=== PATIENT | male | born 1980 | race Caucasian/White ===

== ENCOUNTER → 2018-02-26 | Day surgery (SDC) | payer OTHER ==
[~2018-02-26] MED LIST: DEXAMETHASONE SOD PHOS 20 MG/5 ML VIAL.; IV RINGERS,LACTATED 1000ML 1,000 ML IV; LIDOCAINE 1% PF 2 ML VIAL. ID; LIDOCAINE 2% PF Vial for OR 5 ML VIAL.; MORPHINE SULFATE 2 MG/ML DISP.SYRIN.; ONDANSETRON PF 4 MG/2 ML VIAL.; ONDANSETRON PF 4 MG/2 ML VIAL. IV; PHENYLEPHRINE in 0.9% NACL PF 1 MG/10 ML SYRINGE. IV; PROCHLORPERAZINE 10 MG/2 ML VIAL. IV; PROPOFOL 20 ML IV; SUCCINYLCHOLINE 200 MG/10 ML VIAL.; diphenhydrAMINE 50 MG/ML VIAL; fentaNYL PF VIAL 100 MCG/2 ML VIAL; fentaNYL PF VIAL 100 MCG/2 ML VIAL IV
[2018-02-26] MEDS: fentaNYL PF VIAL 100 MCG/2 ML VIAL IV ×5 (15:07→18:48)
[2018-02-26 15:35] LABS: IMMEDIATE SPIN CROSSMATCH 1 1
[2018-02-26] MEDS: diphenhydrAMINE 50 MG/ML VIAL IVP (18:01)
[2018-02-26] MEDS: MORPHINE SULFATE 2 MG/ML DISP.SYRIN. IV ×2 (18:20→18:32)
== END | disposition home or self-care (01) ==
LOC: SURG 14:44
DX: L97.128 Non-pressure chronic ulcer of left thigh with other specified severity (principal); Z88.0 Allergy status to penicillin; I10 Essential (primary) hypertension; G47.30 Sleep apnea, unspecified; E66.9 Obesity, unspecified; K21.9 Gastro-esophageal reflux disease without esophagitis; M16.0 Bilateral primary osteoarthritis of hip; M17.0 Bilateral primary osteoarthritis of knee; Z72.89 Other problems related to lifestyle; K74.60 Unspecified cirrhosis of liver; Z83.3 Family history of diabetes mellitus; Z79.899 Other long term (current) drug therapy; Z87.891 Personal history of nicotine dependence; Z68.42 Body mass index [BMI] 45.0-49.9, adult; E66.01 Morbid (severe) obesity due to excess calories; D51.3 Other dietary vitamin B12 deficiency anemia; Z86.14 Personal history of Methicillin resistant Staphylococcus aureus infection; E43 Unspecified severe protein-calorie malnutrition; D50.9 Iron deficiency anemia, unspecified
CPT/HCPCS: 11042; 36415; 86850; 86900; 86901; 86920; A7015; J0330; J1100; J1200; J2001; J2270; J2370; J2405; J2704; J3010; P9016